=== PATIENT | male | born 1985 | race Caucasian/White ===

== ENCOUNTER → 2018-04-03 | Outpatient (CLI) | payer OTHER | LOC: M OUTALCOH 09:05 | DX: Z13.9 Encounter for screening, unspecified (principal); F12.20 Cannabis dependence, uncomplicated ==

== ENCOUNTER 2018-04-08 15:14 | Outpatient (RCR) | payer MEDICAID | END 2018-04-18 | LOC: M OUTALCOH 15:14 | DX: F12.20 Cannabis dependence, uncomplicated (principal); F17.200 Nicotine dependence, unspecified, uncomplicated ==

== ENCOUNTER 2018-04-23 11:54 | Outpatient (RCR) | payer MEDICAID | END 2018-05-19 | LOC: M OUTALCOH 11:54 | DX: F12.20 Cannabis dependence, uncomplicated (principal); F17.200 Nicotine dependence, unspecified, uncomplicated ==

== ENCOUNTER → 2023-05-26 | Outpatient (CLI) | payer MEDICAID | LOC: M OUTALCOH 12:49 | PROVIDERS: ATTEND Psychiatry & Neurology Psychiatry | DX: F10.10 Alcohol abuse, uncomplicated (principal) ==

== ENCOUNTER 2023-06-02 13:03 | Outpatient (RCR) | payer MEDICAID | END 2023-06-19 | LOC: M OUTALCOH 13:03 | PROVIDERS: ATTEND Psychiatry & Neurology Psychiatry | DX: F12.10 Cannabis abuse, uncomplicated (principal); F15.10 Other stimulant abuse, uncomplicated; Z72.0 Tobacco use ==

== ENCOUNTER 2023-06-17 16:00 | Outpatient (RCR) | payer MEDICAID | END 2023-06-19 | LOC: M OUTALCOH 16:00 | PROVIDERS: ATTEND Psychiatry & Neurology Psychiatry | DX: F12.10 Cannabis abuse, uncomplicated (principal); F15.10 Other stimulant abuse, uncomplicated; Z72.0 Tobacco use ==